=== PATIENT | female | born 2000 | race Caucasian/White ===

== ENCOUNTER 2023-01-03 11:40 | Emergency (ER) | payer BC, SELFPAY ==
--- NOTE | 2023-01-03 11:52 | ED.URI ---
HPI - URI/Sore Throat General Chief Complaint: Upper Respiratory Infection Stated Complaint: RT Eat Irritation,Scratchy Throat,Congestion Time Seen by Provider: 01/03/23 12:00 Source: patient, RN notes reviewed and old records reviewed Mode of arrival: ambulatory Limitations: no limitations History of Present Illness HPI Narrative: 22-year-old female presents to the [facility] with right ear pain. Scratchy throat at times as well as congestion started Friday States that she has been using Q-tips. Tried using ear drops last night cause more burning to the right ear. Has also tried DayQuil and NyQuil Onset (ago): day(s) (4) Related Data Allergies Allergy/AdvReac Type Severity Reaction Status Date / Time Penicillins AdvReac Mild Hives Verified 01/03/23 12:01 Review of Systems Review of Systems: All systems reviewed & are unremarkable except as noted in HPI and below Constitutional: Constitutional: Reports no additional constitutional complaints Eyes: Eyes: Reports no additional eye complaints ENT: Reports as per HPI Cardiovascular: Cardiovascular: Reports no additional cardiovascular complaints, Denies chest pain and Denies dyspnea Respiratory: Respiratory: Reports no additional respiratory complaints, Denies chest congestion, Denies cough and Denies dyspnea Gastrointestinal: Gastrointestinal: Reports no additional gastrointestinal complaints, Denies abdominal pain, Denies nausea and Denies vomiting Musculoskeletal: Musculoskeletal: Reports no additional musculoskeletal complaints Integumentary/Breasts: Skin/Breast: Reports system reviewed and no additional complaints, except as docu Neurologic: Reports system reviewed and no additional complaints, except as documented Psychiatric: Psychiatric: Reports no additional psychiatric complaints Allergic/Immunologic: Allergic/Immunologic: Reports no additional allergic/immunologic complaints [facility] Comments At the time of my signature, I reviewed and agree with the nursing past medical, surgical, social, and family history. There is no relevant family history pertinent to the patient complaint. Exam Const: General: cooperative, healthy appearing, comfortable, no acute distress, well developed, alert and well nourished Nutritional Appearance: well nourished and obese Orientation/consciousness: patient oriented x3 Limitations: no limitations HENMT: Head: normal to inspection Ears: hearing grossly normal bilaterally, external ears normal, TM's normal bilaterally, mastoids normal and Abnormal EAC present erythema on the right; no edema, no EA tenderness, no foreign body and no otic discharge Face/Nose/Sinus: Normal external nose present, Normal nares present, Normal nasal mucous membranes and turbinates present and normal facial exam Face and sinus: normal facial exam Mouth: Yes Normal oral and palatal mucosa present, Yes lip normal and Yes moist mucous membranes Throat: posterior oropharynx normal, uvula midline and postnasal drainage Eyes: General: appearance normal, both eyes and all related structures Alignment and Position: alignment normal Periorbital: periorbital findings normal Pupils: Equal, round and reactive pupils present EOM: EOMs intact bilaterally Neck: Neck: normal visual inspection, full ROM, no lymphadenopathy and no meningeal signs Chest: Chest palpation & inspection: normal inspection of the chest Resp: Effort & Inspection: normal respiratory effort and able to speak in complete sentences Auscultation: clear to auscultation bilaterally, no crackles, no rales, no rhonchi and no wheezes Cardio: Rate: regular rate Rhythm: regular rhythm Back/Spine/Pelvis: Cervical Spine: cervical ROM normal Thoracic/Lumbar Spine: No thoracic spinal tenderness Skin: General skin exam: normal color and no rashes or lesions noted Lesions: no lesions Rashes: no rashes Wounds: no wounds Neuro: General: patient oriented x3, gait normal, tone normal, moves all extremities
[2023-01-03 11:55] VITALS: BP 150/84; PULSE 129; RESP 18; TEMP 36.4; O2SAT 100
[2023-01-03 12:09] VITALS: BP 141/90; PULSE 115; O2SAT 100
== END 2023-01-03 12:08 | disposition home or self-care (01) ==
PROVIDERS: Emergency Provider Nurse Practitioner
DX: H65.01 Acute serous otitis media, right ear (principal); S00.411A Abrasion of right ear, initial encounter; X58.XXXA Exposure to other specified factors, initial encounter
CPT/HCPCS: 99203; G0463

== ENCOUNTER 2024-01-09 11:28 | Emergency (ER) | payer BC, SELFPAY ==
[2024-01-09 11:37] VITALS: BP 139/76; PULSE 130; RESP 16; TEMP 36.3; O2SAT 100
[2024-01-09 11:40] VITALS: O2SAT 100
--- NOTE | 2024-01-09 11:45 | ED.URI ---
HPI - URI/Sore Throat General Chief Complaint: Upper Respiratory Infection Stated Complaint: CONGESTION/COUGH Time Seen by Provider: 01/09/24 11:40 Source: patient Mode of arrival: ambulatory Limitations: no limitations History of Present Illness HPI Narrative: Lynette is a 23-year-old female patient presenting to the clinic today with complaints of cough and congestion this been going on for approximately 2-3 weeks. She denies any sinus pressure at this time. Denies any fevers or chills. States that she feels as though she is on the mend however she still has a lingering cough and at. Of time she has slight shortness of breath. Denies any history of asthma or COPD. She denies any smoking. MD elicited complaint: cough and nasal congestion Related Data Allergies Allergy/AdvReac Type Severity Reaction Status Date / Time Penicillins AdvReac Mild Hives Verified 01/09/24 11:56 Review of Systems Review of Systems: Pertinent positives per HPI. Patient denies any fever, chills, rash, headache, visual changes, dizziness, chest pain, palpitations, nausea, vomiting, diarrhea, constipation, abdominal pain, or any urinary issues. [facility] Comments At the time of my signature, I reviewed and agree with the nursing past medical, surgical, social, and family history. There is no relevant family history pertinent to the patient complaint. Exam Narrative: General: Well-developed, obese, in no apparent distress Head: Normocephalic, atraumatic Eyes: Pupils equally round and reactive to light bilaterally, EOM intact, sclera and conjunctive clear, no discharge, lids normal Ears: TMs intact and clear, ear canals clear, no drainage, grossly hearing normal. Nose: Nares patent, clear nasal discharge, no inflammation, no sinus tenderness. Mouth: Oral pharynx without lesions or masses, good dentition, MMM. Neck: Supple, trachea midline, no enlargement of anterior or posterior cervical nodes, no thyroid masses or goiter palpable. Cardio: Regular rate and rhythm, s1 and s2 normal, no murmur appreciated. Resp: Clear to auscultation bilaterally, no rhonchi, rales, wheezing or rubs Course Course Emergency Course: Portions of this record may have been created with voice recognition software. Level of Care: Express Care Visit Vital Signs Vital signs: Vital Signs Temperature 36.3 C L 09/13/24 11:37 Pulse Rate 130 H 01/09/24 11:37 Respiratory Rate 16 01/09/24 11:37 Blood Pressure 139/76 01/09/24 11:37 Pulse Oximetry 100 01/09/24 11:37 Temperature 36.3 C L 01/09/24 11:37 Pulse Rate 130 H 01/09/24 11:37 Respiratory Rate 16 01/09/24 11:37 Blood Pressure 139/76 01/09/24 11:37 Pulse Oximetry 100 01/09/24 11:37 Vital signs reviewed MDM - URI/Sore Throat MDM Narrative Medical decision making narrative: At the time of visit patient is resting comfortably on the exam table. Patient appears to be nontoxic. Plan: I suspect patient has URI with cough and congestion. Prescription for albuterol inhaler and prednisone was sent to the pharmacy. Supportive measures were discussed with the patient and they voiced understanding discharge instructions and agrees to treatment plan. Return precautions reviewed Differential Diagnosis Differential diagnosis: Likely upper respiratory infection, otitis media, sinusitis, viral infection, bronchitis, influenza, pharyngitis and other (COVID) Discharge Plan Discharge Clinical Impression: Upper respiratory infection with cough and congestion Patient Disposition: Home, Self-Care Condition: Stable Instructions: Antibiotic Form, Upper Respiratory Infection (ED) Additional Instructions: Take prescription medications only as prescribed-albuterol and prednisone Increase fluids and stay well hydrated Tylenol/motrin for pain/fever Flonase and OTC antihistamines as directed Vicks vapor rub to open sinuses Sinus rinses for congestion Cepacol spray, coug
== END 2024-01-09 11:58 | disposition home or self-care (01) ==
PROVIDERS: Emergency Provider Nurse Practitioner Family
DX: J06.9 Acute upper respiratory infection, unspecified (principal)
CPT/HCPCS: 99213; G0463